=== PATIENT | female | born 1985 | race Caucasian/White ===

== ENCOUNTER 2022-03-21 08:04 | Outpatient (CLI) | payer OTHER, SELFPAY ==
--- NOTE | 2022-03-21 08:15 | CRLHL7_ITS ---
For Patients: As a result of the Century Cures Act, medical imaging exams and procedure reports are released immediately into your electronic medical record. You may view this report before your referring provider. If you have questions, please contact your health care provider. INDICATION: First trimester scan, establish dates. COMPARISON: None. TECHNIQUE: Real-time antoine-scale imaging of the pelvis was performed. FINDINGS: Sonographic imaging demonstrates a single living intrauterine gestation. The embryo demonstrates a regular cardiac rate measuring 166 beats per minute. The embryo`s crown-rump length measurement of 2.5 cm corresponds to a gestational age of 9 weeks 1 day with a sonographic due date of 10/23/2022. There is a normal-appearing yolk sac. There are no gross abnormalities noted within the embryo at this early state of development. The gestational sac has a normal appearance. There is no evidence of a perigestational hemorrhage. The amount of fluid within the sac appears appropriate for gestational age. The cervix is closed. There are 2 lower uterine segment fibroids measuring 2.0 x 1.0 x 1.5 cm and 1.2 x 1.1 x 1.0 cm. The ovaries are of normal size. Simple right ovarian cyst measuring 2.3 cm and corpus luteal right ovarian cyst measuring 2.2 cm. There are no suspicious fluid collections noted in the cul-de-sac. IMPRESSION: Single living intrauterine with sonographic gestational age 9 weeks 1 day and sonographic due date 10/23/2022. Two uterine fibroids at the lower uterine segment measuring up to 2 cm. Dictated by Steve Gipson MD @ 03/21/2022 12:58:30 PM (Electronically Signed)
== END 2022-03-21 08:05 | disposition home or self-care (01) ==
PROVIDERS: Visit Provider Registered Nurse
DX: Z34.91 Encounter for supervision of normal pregnancy, unspecified, first trimester (principal); Z3A.09 9 weeks gestation of pregnancy
CPT/HCPCS: 76817

== ENCOUNTER 2022-03-21 09:17 | Outpatient (CLI) | payer OTHER, SELFPAY ==
[2022-03-21 12:31] LABS: HIV 1/2/P24 Combo Screen* Negative (Negative)
[2022-03-21 13:14] LABS: Chlamydia DNA Amplified* NOT DETECTED (No Detected); GC DNA Amplified* NOT DETECTED (No Detected)
[2022-03-21 15:33] LABS: Hepatitis B Surface Antigen* Negative (Negative)
[2022-03-21 15:50] LABS: Hepatitis C Virus Antibody* Negative (Negative)
[2022-03-24 09:52] LABS: Rapid Plasma Reagin (RPR) Non Reactive (Non Reactive)
[2022-03-24 14:06] LABS: Varicella-Zoster Virus Ab, IgG 279.9 IV
[2022-03-24 14:14] LABS: Rubella Antibody IgG 35.1 IU/mL
== END 2022-03-21 09:18 | disposition home or self-care (01) ==
PROVIDERS: Visit Provider Registered Nurse
DX: O09.521 Supervision of elderly multigravida, first trimester (principal); Z3A.09 9 weeks gestation of pregnancy
CPT/HCPCS: 81420; 86592; 86703; 86762; 86787; 86803; 86850; 86900; 86901; 87086; 87340; 87491; 87591

== ENCOUNTER 2022-05-08 15:23 | Outpatient (CLI) | payer OTHER, SELFPAY | END 2022-05-08 15:24 | disposition home or self-care (01) | LOC: NFLDREF 15:29 | PROVIDERS: Visit Provider Obstetrics & Gynecology | DX: O09.522 Supervision of elderly multigravida, second trimester (principal); Z3A.15 15 weeks gestation of pregnancy | CPT/HCPCS: 81511 ==

== ENCOUNTER 2022-08-15 07:59 | Outpatient (CLI) | payer OTHER, SELFPAY | END 2022-08-15 08:00 | disposition home or self-care (01) | LOC: NFLDREF 08-17 14:10 | PROVIDERS: Visit Provider Obstetrics & Gynecology | DX: Z34.93 Encounter for supervision of normal pregnancy, unspecified, third trimester (principal); Z3A.30 30 weeks gestation of pregnancy | CPT/HCPCS: 86592 ==

== ENCOUNTER 2022-08-15 08:01 | Outpatient (CLI) | payer OTHER, SELFPAY ==
--- NOTE | 2022-08-15 08:15 | CRLHL7_ITS ---
For Patients: As a result of the Century Cures Act, medical imaging exams and procedure reports are released immediately into your electronic medical record. You may view this report before your referring provider. If you have questions, please contact your health care provider. INDICATION: Third trimester scan, evaluate growth. COMPARISON: 03/21/2022 TECHNIQUE: Real time antoine scale imaging of the fetus was performed as well as color Doppler and spectral Doppler analysis of the umbilical artery. FINDINGS: Sonographic imaging demonstrates a single living intrauterine gestation. Fetus demonstrates a regular cardiac rate of 150 beats per minute. Fetus has a vertex position. The placenta lies anteriorly. Anterior uterine fibroid measuring 3.5 x 1.3 x 2.8 cm. Amniotic fluid volume appears normal and there is a single deepest vertical pocket: 5.3 cm. The estimated weight is 1708gm which lies at the 77th %. The HC/AC ratio measures 1.02 range (0.96-1.17). BPD 71st percentile. HC 36th percentile. AC 87th percentile. FL 51st percentile. IMPRESSION: Anterior retroplacental fibroid noted measuring 3.5 x 1.3 x 2.8 cm. Sonographic gestational age 31 weeks 0 days and sonographic due date 10/17/2022. Sonographic age 7 days ahead of the clinical age. Estimated weight 77th percentile. Abdominal circumference 87th percentile. Dictated by Steve Gipson MD @ 08/15/2022 9:10:27 AM (Electronically Signed)
== END 2022-08-15 08:02 | disposition home or self-care (01) ==
LOC: US 08:01
PROVIDERS: Visit Provider Obstetrics & Gynecology
DX: Z34.93 Encounter for supervision of normal pregnancy, unspecified, third trimester (principal); Z3A.31 31 weeks gestation of pregnancy
CPT/HCPCS: 76816

== ENCOUNTER 2022-08-21 11:14 | Outpatient (RCR) | payer OTHER, SELFPAY ==
--- NOTE | 2022-08-21 15:49 | PT.OPEX ---
[facility] Outpatient Eval PT [facility] Outpatient Eval Start: 08/21/22 11:28 Freq: Status: Active Protocol: Document 08/21/22 11:30 [facility] (Rec: 08/21/22 15:07 [facility] [id number]) E-signed By Kendell Quispe, PT Physical Therapy Outpatient Evaluation Insurance Information Insurance Name [employer] Medical Diagnosis Back pain affecting Dorsalgia M54.9 Treating Diagnosis LBP w/ radiculopathy M54.16 related LBP Referring MD Dr. Zhane Zambrano Subjective Subjective Pt has a history of LBP. She has a bone tumor that abuts L5 , out of pelvis ( osteochondroma). She worked really intensely with PT 2011- 2014. Pt is 31 weeks - due . Prior to , staying active (running, skiiing) Current symptoms: left butt numbness, mild SIJ pain, radiculopathy from knee and below to left foot Aggravating: prolonged sitting , sleep Relieving: walking, pre-mendez yoga. 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 Limited only by baby Extension: WNL but end range pain in low back Flexion preference Hips: WNL bilaterally Strength: LEs: grossly WNL except glute max 4/5 Palpation: mild tenderness L PSIS Posture: level pelvis in standing Slump: + for neural tension left sciatic nerve Assessment Assessment/Impression 37 year old female at 31 weeks gestation, first , presents with subacute on chronic left low back/buttock pain with radiculopathy. 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 She is active and has received extensive PT for this condition, however, related changes have worsened her symptoms. Patient presented today mostly interested in learning appropriate exercises to manage symptoms and for LE stretching and strengthening and core strength that are safe to perform in the third trimester. Patient is a quick learner and has a good foundation to build upon for HEP. Primary Functional Limitations prolonged sitting, sleep Plan of Care Rehabilitation Potential Not Applicable Rehabilitation Potential Comments Will likely be managing increasing pain as she progresses throughout her , but will have excellent rehab potential post delivery. Physical Therapy Goals 1) In 1-2 weeks, patient will be I with HEP and self- management of related LBP/radiculopathy sx 2) For remainder of , patient will be able to manage related back pain/radiculopathy sx , pain not to exceed 3/10 and/or be disruptive to work/daily life 3) In 1-2 weeks, patient reports that LBP/radiculopathy not limiting sleep quality Coordination/Communication With Referral Source Treatment Plan/Direct Interventions Manual Therapy,Self-Care/Home Management,Therapeutic Exercises Frequency/Duration 3-4 visits over the course of (8-9 more weeks) Patient Will Be Discharged From Therapy Independent w/HEP, Independently Progressing Evaluation Billing Untimed Code Treatment Minutes 25 Complexity Moderate Certification Information Physician Comment/Change : Physician NPI Number #
== END 2022-12-19 23:59 | disposition home or self-care (01) ==
PROVIDERS: Visit Provider Obstetrics & Gynecology
DX: O99.891 Other specified diseases and conditions complicating pregnancy (principal); M54.9 Dorsalgia, unspecified; Z51.89 Encounter for other specified aftercare
CPT/HCPCS: 97110; 97162

== ENCOUNTER 2022-09-10 07:20 | Outpatient (CLI) | payer OTHER, SELFPAY ==
--- NOTE | 2022-09-10 07:15 | CRLHL7_ITS ---
For Patients: As a result of the Century Cures Act, medical imaging exams and procedure reports are released immediately into your electronic medical record. You may view this report before your referring provider. If you have questions, please contact your health care provider. INDICATION: retroplacental leiomyoma, follow up growth COMPARISON: 08/15/2022 TECHNIQUE: Real time antoine scale imaging of the fetus was performed. FINDINGS: Sonographic imaging demonstrates a single living intrauterine gestation. Fetus demonstrates a regular cardiac rate of 139 beats per minute. Fetus has a vertex position. The placenta lies anteriorly. Amniotic fluid volume appears normal and there is a single deepest vertical pocket: 5.3 cm. The estimated weight is 2221gm which lies at the 37th %. On the prior OB ultrasound exam dated 08/15/2022 the estimated weight was at the 77th%. BPD 57th percentile. HC 28th percentile. AC 48th percentile. FL 25th percentile. The HC/AC ratio measures 1.04 range (0.95-1.11). Anterior uterine fibroid measures 3.4 x 1.3 x 2.6 cm. IMPRESSION: Sonographic gestational age 33 weeks 6 days and sonographic due date 10/23/2022. Good correlation with dates. Normal interval growth. Estimated weight 37th percentile. Abdominal circumference 48 percent. Anterior uterine fibroid measuring 3.4 x 1.3 x 2.6 cm. Previously, this measured 3.5 x 1.3 x 2.8 cm. Dictated by Steve Gipson MD @ 09/10/2022 9:51:34 AM (Electronically Signed)
== END 2022-09-10 07:21 | disposition home or self-care (01) ==
LOC: US 07:21
PROVIDERS: PCP Family Medicine; Visit Provider Obstetrics & Gynecology
DX: O34.13 Maternal care for benign tumor of corpus uteri, third trimester (principal); D25.9 Leiomyoma of uterus, unspecified; Z3A.33 33 weeks gestation of pregnancy
CPT/HCPCS: 76816

== ENCOUNTER 2022-09-19 09:47 | Outpatient (CLI) | payer OTHER, SELFPAY ==
[2022-09-19 10:10] VITALS: BP 104/64; PULSE 69; RESP 16; TEMP 36.9
[2022-09-19 10:28] VITALS: BP 108/63; PULSE 73
--- NOTE | 2022-09-19 11:03 | PC.OBNST ---
NST Note NST Note Start: 09/19/22 09:59 Freq: ONCE Status: Active Protocol: Document 09/19/22 10:40 ZARIA (Rec: 09/19/22 11:03 ZARIA [id number]) NST Note 5 Para (# of births) 0 EDC 10/24/22 Gestational Age In Weeks & Days 35 Weeks & 0 Days Patient Presented with Complaint(s) of Pain,Nausea and vomiting If Pain, describe location history of back pain with flare up, states likely just tweaked it Reactive Yes Appropriate for Gestational Age Yes JAMES Herrera RN Date 09/19/22 Reactive Yes Appropriate for Gestational Age Yes JAMES Reilly RNC Date 09/19/22 OB NST charge Yes Complete NST Note via Write Note Yes The provider's electronic signature indicates the NST is reactive/appropriate for gestational age. *Note to provider: If an addendum is required, open the patient's chart and click on the note under the Nurse/Allied Health tab.
== END 2022-09-19 10:40 | disposition home or self-care (01) ==
LOC: OB OUT 09:47 → OB 09:48
PROVIDERS: PCP Family Medicine; Visit Provider Obstetrics & Gynecology
DX: O47.03 False labor before 37 completed weeks of gestation, third trimester (principal); Z3A.35 35 weeks gestation of pregnancy
CPT/HCPCS: 59025; 99213

== ENCOUNTER 2022-09-21 14:34 | Outpatient (CLI) | payer OTHER, SELFPAY ==
[2022-09-21 14:45] VITALS: PULSE 94; O2SAT 98
[2022-09-21 14:50] VITALS: PULSE 100; O2SAT 96
[2022-09-21 14:55] VITALS: PULSE 93; O2SAT 96
[2022-09-21 15:24] VITALS: PULSE 107; PULSE 163; O2SAT 81; O2SAT 97
[2022-09-21 15:27] VITALS: BP 114/69; PULSE 105
--- NOTE | 2022-09-21 17:30 | W.PM.OBTRAN ---
History of Present Illness History of Present Illness History of Present Illness: 37 year old -0-4-0 woman at 35 weeks, 2 days gestation by 1st trimester US, CRISTAL 10/24/22, presents with regular contractions. She has received care thus far at our institution. However, she has Chiari I malformation, and Anesthesia Department here prefers to avoid regional anesthesia in her case because of this. Thus, the plan has been for her to give at [facility]. At this time, she has been [place] regularly for couple hours, currently every 3 minutes. OB HISTORY: 03/2019: Conceived spontaneously. [place] miscar[place] at 6 weeks gestation. [facility]. 09/2019: Conceived spontaneously. Partial Molar/triploid/abnormal trophoblast. D+C at ~14 weeks at [facility]. Ongoing bleeding x6 weeks, then passed placenta in shower-confirmed with pathology. Took 4 months for hcg to drop. --Experienced difficulty conceiving. Referred to [facility].-- 2020: Conceived spontaneously. Early miscarriage at 5 weeks gestation. [facility]. 2021: 4th or 5th round of IUI - conceived. Early miscarriage at 5weeks gestation. D+C and hysteroscopy (in preparation for IVF) at [facility]. --Began planing for IVF-- GYNECOLOGIC HISTORY: Contraception being uses during time of conception: none Last normal menstrual period: 01-15-22. Date reliability: certain. Cycle interval: 26 days Treatment for infertility: history of IUI, was planning IVF, but conceived spontaneously Last pap: normal, negative HPV History of STI or PID: denies History of MRSA: denies Other comments: OB Problem List : Jorge 1. Infertility. H/o 5 rounds IUI. Was planning embryo transfer, but conceived spontaneously !! 2. AMA MaterniT 21: negative Baby ASA at 12 wks Level 2 u/s: Normal anatomy. Level 2 ultrasound results reviewed. Recommendations: Return to primary provider for continued care. Growth ultrasounds at 28 and 34 weeks gestation recommended due to retroplacental fibroid. 30 weeks: cephalic, SDP 5.3 cm, EFW 77, AC 87%. 3. H/o partial molar plus 3 early miscarriages. Tested negative for antiphospholipid antibodies. Normal maternal karyotype. 4. Chiari Malformation, Type 1. Asymptomatic, other than possibly headaches. Already seen by Perinatology; records reviewed. Okay to continue routine care locally with plan for transfer of care to [facility] at 36 weeks. Plan for delivery at [facility] at ~39 weeks. Already seen by neurology; records scanned. Refer to Anesthesia to discuss pain management options: on 04/11/22, recommend against regional anesthesia. Anesthesia recommends delivery at tertiary [facility]. Patient chooses [facility]. AFP test: Negative (05/08/22) 5. Migraines. Caffeine currently offers relief. Used sumatriptan in past, but thought she couldn't take in . Can use sumatriptan if needed. Could use propranolol for migraine prophylaxis if needed as well. 6. Mild intermittent asthma. Uses albuterol on rare occasions. 7. 2 uterine fibroids at lower uterine segment measuring up to 2cm. 8. Osteochondroma in pelvis diagnosed at 20 y.o. Abuts L5 in right pelvis. no neuroilogic issues. Stable in size. 9. Gilbert Syndrome Flu: completed Covid: completed and boosted multiple times!! TDAP- 08/15/22 Meds Home Medications and Allergies Home Medications Medication Instructions Recorded Confirmed Type docosahexaenoic acid 200 mg mg PO 03/21/22 09/10/22 History capsule ( DHA) aspirin 81 mg capsule 81 mg PO QDAY 05/08/22 09/21/22 History Allergies Allergy/AdvReac Type Severity Reaction Status Date / Time No Known Allergies Allergy Unknown Verified 09/10/22 13:48 COUNT INCLUDES THE [facility] Medical History (Updated 09/21/22 @ 17:46 by Zhane Zambrano MD) Partial molar ?O08.89 - Other complications following an ectopic and molar (ICD-10) Miscarriage ?O03.9 - Complete or unspecified spontaneous without complication (ICD-10) Migraine with aura ?G43.109 - Migraine with aura, not intractable, without status migrainosus (ICD-10) Foreign body in hand ?S60.559A - Superficial foreign body of unspecified hand, initial encounter (ICD-10) Concussion ?S06.0XAA - Concussion with loss of consciousness status unknown, initial encounter (ICD-10) Bone tumor ?D49.2 - Neoplasm of unspecified behavior of bone, soft tissue, and skin (ICD-10) Anesthesia complication ?T88.59XA - Other complications of anesthesia, initial encounter (ICD-10) Surgical History (Updated 05/08/22 @ 16:17 by Ondina Ferrera MD) H/O dilation and curettage ?Z98.890 - Other specified postprocedural states (ICD-10) [place] teeth extracted ?K08.409 - Partial loss of teeth, unspecified cause, unspecified class (ICD-10) Family History Mother Lupus Anxiety Father Gilbert syndrome Sister Anxiety Maternal Grandmother Colon cancer Paternal Grandmother Pancreatic cancer Social History Smoking Status: Never smoker Little interest or pleasure in doing things: not at all Feeling down, depressed, or hopeless: not at all History History 5 Elective abortions Para 0 Spontaneous abortions 4 Hx # Term Pregnancies Ectopic pregnancies Hx # Pregnancies Multiple births Number of Living Children 0 OB - H&P: Exam Physical Exam Vital signs: Pulse BP Pulse Ox 105 H 114/69 97 09/21/22 15:27 09/21/22 15:27 09/21/22 15:24 Narrative: Physical exam: General: No acute distress , lying on her side in bed, appears uncomfortable Psych: Alert and oriented x3, full affect HEENT: Normocephalic, atraumatic Heart: Regular rate and rhythm, no murmur rub or gallop Lungs: Clear to auscultation bilaterally Abdomen: soft, nontender, cephalic lie Lower extremities: No edema or erythema Pelvic exam: per RN initial exam: 1.5 cm, 50%, 0 station Subsequent exam 1 hour and 45 minutes later: 2 cm, 60%, 0 station tracing call baseline 130, accelerations present, no decelerations, moderate variability. Contractions every 3 minutes Results Labs Laboratory Tests 09/21/22 Range/Units 17:20 Group B Strep DNA Pending Assessment and Plan Assessment and plan (1) labor: Status: Acute Assessment and Plan: Early labor at 35 weeks, 2 days gestation. Reassuring status with category 1 tracing GBS unknown Mode of transport: [facility] Transfer to: [facility] (2) Chiari malformation type I: Problem comment: Follows with neuro, follow-up MRI stable, cleared for vaginal delivery Status: Acute Assessment and Plan: Not a candidate for neuraxial anesthesia at this institution. This, in combination with labor, is the indication for transfer to higher level of care. Mode of transport: [facility] Plan GBS collected and pending. She will be given a dose of betamethasone for promotion of lung maturity. Ampicillin to be started for GBS prophylaxis until GBS culture results available. To facilitate transfer, she will be given a single dose of nifedipine 20 mg p.o.. I discussed her case with Dr. Shaista Post at [facility], who accept her in transfer.
[2022-09-21] MEDS: AMPICILLIN 2 GM in 0.9 % SODIUM CHLORIDE Mini-bag 100 ML IVPB (17:42)
[2022-09-21] MEDS: LACTATED RINGERS 1000 ML 1,000 ML 125 ML IV (17:42)
[2022-09-21 17:44] VITALS: BP 116/69; PULSE 92
[2022-09-21] MEDS: BETAMETHASONE SOD PHOS/ACETATE 6 MG/ML ML 12 MG IM (17:53)
[2022-09-21] MEDS: NIFEdipine 10 MG CAPSULE 20 MG PO (17:54)
[2022-09-22 14:23] LABS: Strep B DNA Probe POSITIVE (Negative)
[2022-09-22 14:28] LABS: Strep B Pen/Amox Allergy No
--- NOTE | 2022-10-27 17:00 | PC.OBNST ---
NST Note NST Note Start: 09/21/22 14:49 Freq: ONCE Status: Complete Protocol: Document 09/21/22 19:00 MARILYN (Rec: 09/22/22 07:17 ROLDAN [id number]) NST Note 5 Para (# of births) 0 EDC 10/24/22 Gestational Age In Weeks & Days 35 Weeks & 3 Days Patient Presented with Complaint(s) of Contractions/cramping Reactive Yes Appropriate for Gestational Age Yes RN Maryam Drew RN Date 09/21/22 Reactive Yes Appropriate for Gestational Age Yes JAMES Kyle RN Date 09/21/22 OB NST charge Yes Complete NST Note via Write Note Yes The provider's electronic signature indicates the NST is reactive/appropriate for gestational age. *Note to provider: If an addendum is required, open the patient's chart and click on the note under the Nurse/Allied Health tab.
== END 2022-09-21 18:20 | disposition home or self-care (01) ==
LOC: OB OUT 14:36 → OB 14:37
PROVIDERS: PCP Family Medicine; Visit Provider Obstetrics & Gynecology
DX: O09.523 Supervision of elderly multigravida, third trimester (principal); O60.03 Preterm labor without delivery, third trimester; Z3A.35 35 weeks gestation of pregnancy
CPT/HCPCS: 59025; 87081; 87086; 87653; 99213; A9270; J0290; J0702; J7120

== ENCOUNTER 2022-09-21 18:10 | Outpatient (CLI) | payer OTHER, SELFPAY | END 2022-09-21 18:11 | disposition home or self-care (01) | LOC: AMB 09-24 14:50 | PROVIDERS: PCP Family Medicine; Visit Provider Family Medicine | DX: O60.00 Preterm labor without delivery, unspecified trimester (principal) | CPT/HCPCS: A0425; A0434 ==

== ENCOUNTER 2023-07-23 08:09 | Emergency (ER) | payer OTHER, SELFPAY ==
[2023-07-23 08:13] VITALS: BP 102/68; PULSE 93; RESP 18; TEMP 36.7; O2SAT 100; BMI 1527.0
--- NOTE | 2023-07-23 08:29 | CRLHL7_ITS ---
For Patients: As a result of the Cures Act, medical imaging exams and procedure reports are released immediately into your electronic medical record. You may view this report before your referring provider. If you have questions, please contact your health care provider. RIGHT BREAST ULTRASOUND CLINICAL HISTORY: RIGHT breast mastitis. COMPARISON: None. TECHNIQUE: Real-time ultrasound imaging of RIGHT breast with imaging documentation. FINDINGS: Targeted sonogram RIGHT breast 11 o`clock performed in the area of concern. Heterogeneous breast tissue is present with increased vascularity. No fluid collection or mass. IMPRESSION: Mastitis. No abscess. RECOMMENDATIONS: Clinical follow-up. BI-RADS: 2. Benign. Dictated by Steve Gipson MD @ 07/23/2023 10:06:36 AM/CRL:shantell VASQUEZ/Dictated by: Steve Gipson MD @ 07/23/2023 10:06:00 AM (Electronically Signed)
[2023-07-23 08:55] LABS: Lactate* 1.7 mmol/L (0.5-1.9)
[2023-07-23 09:04] LABS: Basophils Percent Auto 0.1 % (0.0-3.0); Eosinophils Percent Auto 0.6 % (0.0-7.0); Hematocrit 36.3 % (33.0-51.0); Hemoglobin* 12.2 gm/dL (12.0-16.0); Immature Granulocytes Pct Auto 0.3 %; Lymphocytes Percent Auto 5.5 % (20-44); Mean Corpuscular HGB Conc 34 gm/dL (32-36); Mean Corpuscular Hemoglobin 30 pg (26-34); Mean Corpuscular Volume 89 fL (80-100); Monocytes Percent Auto 3.1 % (0.0-11.0); Neutrophils Percent Auto 90.4 % (42.0-72.0); Platelet Count* 185 K/uL (140-440); Red Blood Count 4.07 m/uL (4.00-5.20); White Blood Count* 15.76 K/uL (4.50-11.00)
[2023-07-23 09:07] LABS: Slide Review Reflex No
[2023-07-23 09:38] LABS: C Reactive Protein* 16.9 mg/dL (0.5-1.0)
--- NOTE | 2023-07-23 10:07 | ED.GENADULT ---
HPI - General Adult General Date Seen: 07/23/23 Chief complaint: Breast Symptoms Stated complaint: Breast issue - mastitis Time Seen by Provider: 07/23/23 08:10 Source: patient, RN notes reviewed and old records reviewed Mode of arrival: ambulatory Limitations: no limitations History of Present Illness HPI narrative: Patient is a 38-year-old woman, generally healthy, who is 9 months , has been breast feeding and had started to wean as she has an upcoming work event that she will be gone for 2 weeks. Yesterday she developed some pain in the right breast, she says she was at [facility] with her infant who was being seen, mentioned it to the PA there, later in the day developed a fever called the PA back and dicloxacillin was prescribed. She has taken a couple doses of that. She says that the PA told her if it was not better by today that she should come in and get an ultrasound so she went to the [facility] but they said that she needed to come here for further evaluation. She notes that she did have a temperature a 100.8? this morning, she took ibuprofen feels improved. She continues to have redness and pain in the right breast, it is no worse but has not gotten significantly better. She is able to express a tiny bit of purulence from that duct, but it otherwise does not seem like it is draining well. Related Data Home Medications ?Medication ?Instructions ?Recorded ?Confirmed docosahexaenoic acid 200 mg mg PO 03/21/22 04/12/23 capsule ( DHA) dicloxacillin 500 mg capsule 500 mg PO QID 07/23/23 07/23/23 Allergies Allergy/AdvReac Type Severity Reaction Status Date / Time No Known Allergies Allergy Unknown Verified 04/12/23 09:36 Review of Systems Status of ROS: Reports: 6 or more systems reviewed and unremarkable except as noted in History and below [facility] Medical History Partial molar ?O08.89 - Other complications following an ectopic and molar (ICD-10) Miscarriage ?O03.9 - Complete or unspecified spontaneous without complication (ICD-10) Migraine with aura ?G43.109 - Migraine with aura, not intractable, without status migrainosus (ICD-10) Foreign body in hand ?S60.559A - Superficial foreign body of unspecified hand, initial encounter (ICD-10) Concussion ?S06.0XAA - Concussion with loss of consciousness status unknown, initial encounter (ICD-10) Bone tumor ?D49.2 - Neoplasm of unspecified behavior of bone, soft tissue, and skin (ICD-10) Anesthesia complication ?T88.59XA - Other complications of anesthesia, initial encounter (ICD-10) Surgical History H/O dilation and curettage ?Z98.890 - Other specified postprocedural states (ICD-10) [place] teeth extracted ?K08.409 - Partial loss of teeth, unspecified cause, unspecified class (ICD-10) Family History Mother Lupus Anxiety Father Gilbert syndrome Sister Anxiety Maternal Grandmother Colon cancer Paternal Grandmother Pancreatic cancer Social History Smoking Status: Never smoker How often do you have a drink containing alcohol: never AUDIT-C Alcohol total score: 0 Non-prescribed substance use: denies use Little interest or pleasure in doing things: not at all Feeling down, depressed, or hopeless: several days Exam Narrative: Exam Narrative: Vital signs reviewed In general, an alert, well-appearing woman. This is heart: Regular rate and rhythm, no murmur. Lungs: Clear, no increased work of breathing. Breasts: She has erythema, warmth, induration in the upper quarter of the right breast. No other surrounding erythema or rash. Const: Vital Signs, click to edit/add: Vital Signs - 24 hr 07/23/23 08:13 Temperature 98.1 F Pulse Rate [Pulse Oximeter] 93 Respiratory Rate 18 Blood Pressure [Ri ght Upper Arm] 102/68 Pulse Oximetry 100 Oxygen Delivery Me thod Room Air Documenting provider has reviewed patient's vital signs: yes Course Course ED Course: I checked a CBC, white count is elevated at 16, CRP elevated at 17. Lactate normal. I did send a blood culture. She had an ultrasound which does not show an abscess by preliminary report. Final report agrees. I have reviewed all this with her. She has been on antibiotics for less than 24 hours, I think it is reasonable to give her another day or 2 and see if she responds. I did send a milk culture. She is nontoxic in appearance. Re[facility] 1-2 days if not improving, return any time for acute worsening. Vital Signs Vital signs: Initial Vital Signs Temperature 98.1 F 07/23/23 08:13 Temperature Source Temporal Artery Scan 07/23/23 08:13 Pulse Rate 93 07/23/23 08:13 Respiratory Rate 18 07/23/23 08:13 Blood Pressure 102/68 07/23/23 08:13 Blood Pressure Mean 79 07/23/23 08:13 Blood Pressure Position Supine 07/23/23 08:13 Pulse Oximetry 100 07/23/23 08:13 Oxygen Delivery Method Room Air 07/23/23 08:13 Vital Signs Temperature 98.1 F 07/23/23 08:13 Pulse Rate 93 07/23/23 08:13 Respiratory Rate 18 07/23/23 08:13 Blood Pressure 102/68 07/23/23 08:13 Pulse Oximetry 100 07/23/23 08:13 Oxygen Delivery Method Room Air 07/23/23 08:13 Temperature 98.1 F 07/23/23 08:13 Pulse Rate 93 07/23/23 08:13 Respiratory Rate 18 07/23/23 08:13 Blood Pressure 102/68 07/23/23 08:13 Pulse Oximetry 100 07/23/23 08:13 Oxygen Delivery Method Room Air 07/23/23 08:13 Medical Decision Making Lab Data Labs: Lab Results 07/23/23 Range/Units 08:45 WBC 15.76 H (4.50-11.00) K/uL RBC 4.07 (4.00-5.20) m/uL Hgb 12.2 (12.0-16.0) gm/dL Hct 36.3 (33.0-51.0) % MCV 89 (80-100) fL MCH 30 (26-34) pg MCHC 34 (32-36) gm/dL RDW Coeff of Marcie 12.0 (11.5-15.5) % Plt Count 185 (140-440) K/uL Neut % (Auto) 90.4 H (42.0-72.0) % Lymph % (Auto) 5.5 L (20-44) % Shelby % (Auto) 3.1 (0.0-11.0) % Eos % (Auto) 0.6 (0.0-7.0) % Baso % (Auto) 0.1 (0.0-3.0) % Neut # (Auto) 14.20 H (1.7-7.0) K/uL Lymph # (Auto) 0.90 (0.90-2.90) K/uL Shelby # (Auto) 0.50 (0.00-0.90) K/UL Eos # (Auto) 0.10 (0.00-0.50) K/uL Baso # (Auto) 0.00 (0.00-0.30) K/uL Abs Immat Gran (auto) 0.00 (0.00-0.30) K/uL Imm/Tot Granulo (auto) 0.3 % Lactate 1.7 (0.5-1.9) mmol/L C-Reactive Protein 16.9 H (0.5-1.0) mg/dL Discharge Plan Discharge Clinical Impression: Acute mastitis of right breast Patient Disposition: Home, Self-Care Condition: Stable Instructions: Mastitis (ED) Additional Instructions: Continue your antibiotic as prescribed. We did a culture today, and if this returns showing something that is not sensitive to dicloxacillin, we will call you to get that changed. If you have no improvement over the next 24-48 hours, [facility] with [facility], . For worsening symptoms at any time, return to the emergency department. Prescriptions: No Action DHA 200 mg capsule PO dicloxacillin 500 mg capsule 500 mg PO QID Follow Up/Referrals: Shoshana Boo MD [Primary Care Provider] - Stand Alone Forms: [employer] Info Instructions
== END 2023-07-23 09:40 | disposition home or self-care (01) ==
PROVIDERS: Emergency Provider Emergency Medicine; PCP Family Medicine
DX: N61.0 Mastitis without abscess (principal)
CPT/HCPCS: 36415; 76642; 83605; 85025; 86140; 87040; 87070; 87077; 87184; 99283; 99284

== ENCOUNTER 2024-03-26 14:06 | Outpatient (CLI) | payer BC, SELFPAY | END 2024-03-26 14:07 | disposition home or self-care (01) | PROVIDERS: PCP Family Medicine; Visit Provider Physician Assistant | DX: Z34.91 Encounter for supervision of normal pregnancy, unspecified, first trimester (principal); O34.81 Maternal care for other abnormalities of pelvic organs, first trimester; O34.11 Maternal care for benign tumor of corpus uteri, first trimester; D25.9 Leiomyoma of uterus, unspecified; N83.202 Unspecified ovarian cyst, left side; Z3A.01 Less than 8 weeks gestation of pregnancy | CPT/HCPCS: 76817 ==

== ENCOUNTER 2024-04-09 12:52 | Outpatient (CLI) | payer BC, SELFPAY | END 2024-04-09 12:53 | disposition home or self-care (01) | PROVIDERS: PCP Family Medicine; Visit Provider Physician Assistant | DX: Z34.91 Encounter for supervision of normal pregnancy, unspecified, first trimester (principal); Z3A.01 Less than 8 weeks gestation of pregnancy | CPT/HCPCS: 76817; 83021; 84443; 86592; 86703; 86704; 86706; 86762; 86787; 86803; 86850; 86900; 86901; 87086; 87340 ==

== ENCOUNTER 2024-04-09 13:33 | Outpatient (CLI) | payer BC, SELFPAY | END 2024-04-09 13:34 | disposition home or self-care (01) | PROVIDERS: PCP Family Medicine; Visit Provider Advanced Practice Midwife | DX: Z34.91 Encounter for supervision of normal pregnancy, unspecified, first trimester (principal); Z3A.01 Less than 8 weeks gestation of pregnancy | CPT/HCPCS: 83020; 83021; 84443; 85660; 86592; 86703; 86704; 86706; 86762; 86787; 86803; 86850; 86900; 86901; 87086; 87340 ==

== ENCOUNTER 2024-06-04 09:56 | Outpatient (CLI) | payer BC, SELFPAY | END 2024-06-04 09:57 | disposition home or self-care (01) | LOC: NFLDREF 06-07 08:41 | PROVIDERS: PCP Family Medicine; Referring Provider Family Medicine; Visit Provider Obstetrics & Gynecology | DX: O09.522 Supervision of elderly multigravida, second trimester (principal); G93.5 Compression of brain; Z3A.15 15 weeks gestation of pregnancy | CPT/HCPCS: 81511 ==

== ENCOUNTER 2024-08-05 14:43 | Outpatient (CLI) | payer BC, SELFPAY | END 2024-08-05 14:44 | disposition home or self-care (01) | LOC: NFLDREF 14:44 | PROVIDERS: PCP Family Medicine; Visit Provider Obstetrics & Gynecology | DX: O26.812 Pregnancy related exhaustion and fatigue, second trimester (principal); Z3A.24 24 weeks gestation of pregnancy | CPT/HCPCS: 84443 ==

== ENCOUNTER 2024-09-01 10:30 | Outpatient (CLI) | payer BC, SELFPAY | END 2024-09-01 10:31 | disposition home or self-care (01) | LOC: NFLDREF 09-03 02:19 | PROVIDERS: PCP Family Medicine; Referring Provider Family Medicine; Visit Provider Obstetrics & Gynecology | DX: Z34.83 Encounter for supervision of other normal pregnancy, third trimester (principal) | CPT/HCPCS: 86592 ==

== ENCOUNTER 2024-09-14 13:55 | Outpatient (CLI) | payer BC, SELFPAY ==
--- NOTE | 2024-09-14 14:00 | CRLHL7_ITS ---
For Patients: As a result of the Century Cures Act, medical imaging exams and procedure reports are released immediately into your electronic medical record. You may view this report before your referring provider. If you have questions, please contact your health care provider. OB ULTRASOUND FOLLOW-UP/LIMITED, 09/14/2024 CLINICAL HISTORY: Suspected macrosomia. COMPARISON: 06/24/2024. TECHNIQUE: Real time antoine scale imaging of the fetus was performed. Transabdominal imaging performed. FINDINGS: CRISTAL by LMP/US: 11/22/2024. GA: 30 weeks 1 day. Gestation: Single. Cervix: Not visualized. Positioning: Vertex. Amniotic Fluid: 5.0 cm SDP. Placenta: Technique: TA. Placenta Position: Anterior. Dopplers: Heart Rate: 129 bpm. BIOMETRY: BPD: 7.9 cm, 31 weeks 1 day. 69% HC: 29.0 cm, 32 weeks 0 days. 67% AC: 26.9 cm, 31 weeks 0 days. 70% FL: 5.6 cm, 29 weeks 2 days. 16% FL/AC Ratio: 20.73% HC/AC Ratio: 1.08. EFW: 1596 grams, 3 lb 8 oz. Age by this US: 30 weeks 6 days. CRISTAL by this US: 11/17/2024. Percentile by CRISTAL: 52% IMPRESSION: 1. Sonographic gestational age 30 weeks 6 days and sonographic due date 11/17/2024. Sonographic age is 5 days ahead of the clinical age. 2. Estimated weight 52nd percentile. Abdominal circumference 70th percentile. 3. BPD 69th percentile. HC 67th percentile. 4. Anterior uterine fibroid measures 2.5 x 1.1 x 1.8 cm. Steve Gipson M.D. Diagnostic Radiologist [email or web address] Transcribed: 8:41 am DW/Dictated by: Steve Gipson MD @ 09/15/2024 7:10:00 AM (Electronically Signed)
== END 2024-09-14 13:56 | disposition home or self-care (01) ==
LOC: US 13:55
PROVIDERS: PCP Family Medicine; Visit Provider Obstetrics & Gynecology
DX: Z34.93 Encounter for supervision of normal pregnancy, unspecified, third trimester (principal); Z3A.30 30 weeks gestation of pregnancy
CPT/HCPCS: 76816

== ENCOUNTER 2024-10-15 13:56 | Outpatient (CLI) | payer BC, SELFPAY ==
--- NOTE | 2024-10-15 14:00 | CRLHL7_ITS ---
For Patients: As a result of the Century Cures Act, medical imaging exams and procedure reports are released immediately into your electronic medical record. You may view this report before your referring provider. If you have questions, please contact your health care provider. OB ULTRASOUND FOLLOW-UP, 10/15/2024 CLINICAL HISTORY: Measuring small for dates. TECHNIQUE: Real time antoine scale imaging of the fetus was performed. Transabdominal imaging performed. COMPARISON: 09/14/2024. FINDINGS: LMP: 02/16/2024. CRISTAL by LMP: 11/22/2024. GA: 34 weeks 4 days. Cervix: Not visualized. Positioning: Vertex. Amniotic Fluid: 5.4 cm SDP. Placenta: Technique: TA. Placenta Position: Anterior. Dopplers: Heart Rate: 135 bpm. BIOMETRY BPD: 8.7 cm, 35 weeks 1 day. 69% HC: 31.4 cm, 35 weeks 1 day. 30% AC: 30.8 cm, 34 weeks 6 days. 62% FL: 6.5 cm, 33 weeks 2 days. 13% FL/AC Ratio: 20.91% HC/AC Ratio: 1.02. EFW: 2436 grams, 5 lb 6 oz. Age by this US: 34 weeks 4 days. CRISTAL by this US: 11/22/2024. Percentile by CRISTAL: 42% IMPRESSION: 1. Sonographic gestational age 34 weeks 4 days and sonographic due date 11/22/2024. 2. Estimated weight 42nd percentile. Abdominal circumference 62nd percentile. Steve Gipson M.D. Diagnostic Radiologist [email or web address] Transcribed: 12:45 pm DW/Dictated by: Steve Gipson MD @ 10/28/2024 12:19:00 PM (Electronically Signed)
== END 2024-10-15 13:57 | disposition home or self-care (01) ==
LOC: US 13:56
PROVIDERS: PCP Family Medicine; Visit Provider Obstetrics & Gynecology
DX: O09.523 Supervision of elderly multigravida, third trimester (principal); O36.5930 Maternal care for other known or suspected poor fetal growth, third trimester, not applicable or unspecified; Z3A.34 34 weeks gestation of pregnancy
CPT/HCPCS: 76816

== ENCOUNTER 2024-10-27 12:44 | Outpatient (CLI) | payer BC, SELFPAY | END 2024-10-27 12:45 | disposition home or self-care (01) | LOC: NFLDREF 11-02 16:54 | PROVIDERS: PCP Family Medicine; Referring Provider Family Medicine; Visit Provider Obstetrics & Gynecology | DX: Z34.93 Encounter for supervision of normal pregnancy, unspecified, third trimester (principal) | CPT/HCPCS: 87081; 87653 ==

== ENCOUNTER 2024-11-05 14:50 | Outpatient (CLI) | payer BC, SELFPAY ==
--- NOTE | 2024-11-05 15:00 | CRLHL7_ITS ---
For Patients: As a result of the Cures Act, medical imaging exams and procedure reports are released immediately into your electronic medical record. You may view this report before your referring provider. If you have questions, please contact your health care provider. OBSTETRICAL ULTRASOUND ???LIMITED, 11/05/2024 INDICATION: Uterine size for dates discrepancy, check NADYA. CLINICAL HISTORY: CRISTAL by LMP: 11/22/2024 Gestational Age: 37 weeks 4 days COMPARISON: 10/15/2024, 09/14/2024, 06/24/2024 TECHNIQUE: Real-time antoine-scale transabdominal imaging of the fetus was performed. FINDINGS: Fetus: Single Cervix: Not visualized positioning: Vertex Amniotic Fluid: NADYA: 14.8 cm 6.0 cm SDP Placenta technique: Transabdominal Placenta position: Anterior heart rate: 126 bpm IMPRESSION: Amniotic fluid NADYA 14.8 cm. Single deepest pocket 6.0 cm. STEVE BROWNING M.D. Diagnostic Radiologist [email or web address] Transcribed: 12:[address]/Dictated by: Steve Browning MD @ 11/06/2024 11:32:00 AM (Electronically Signed)
== END 2024-11-05 14:51 | disposition home or self-care (01) ==
LOC: US 14:50
PROVIDERS: PCP Family Medicine; Visit Provider Obstetrics & Gynecology
DX: O26.843 Uterine size-date discrepancy, third trimester (principal); Z3A.37 37 weeks gestation of pregnancy
CPT/HCPCS: 76815

== ENCOUNTER 2025-01-11 10:57 | Outpatient (CLI) | payer BC, SELFPAY ==
--- NOTE | 2025-01-11 16:20 | P.LACCB_ITS ---
Consult Note - Mom Date of Visit Date of visit: 01/11/25 Reason for consultation: Assistance Needed and Other (strong letdown, baby refluxy, not take bottle well) Visit Code: Visit Patient's Information Phone number: [phone] : 6 Para: 2 Allergies No Known Allergies Allergy (Unknown, Verified 12/07/24 09:33) Mother's Medical History: Medical History (Updated 12/07/24 @ 22:34 by Zhane Zambrano MD) labor ?O60.00 - labor without delivery, unspecified trimester (ICD-10) Vulvar pain ?R10.2 - Pelvic and perineal pain (ICD-10) IUD (intrauterine device) in place ?Z97.5 - Presence of (intrauterine) contraceptive device (ICD-10) Partial molar ?O08.89 - Other complications following an ectopic and molar (ICD- 10) Miscarriage ?O03.9 - Complete or unspecified spontaneous without complication (ICD-10) Migraine with aura ?G43.109 - Migraine with aura, not intractable, without status migrainosus (ICD-10) Foreign body in hand ?S60.559A - Superficial foreign body of unspecified hand, initial encounter (ICD-10) Concussion ?S06.0XAA - Concussion with loss of consciousness status unknown, initial encounter (ICD-10) Bone tumor ?D49.2 - Neoplasm of unspecified behavior of bone, soft tissue, and skin (ICD-10) Anesthesia complication ?T88.59XA - Other complications of anesthesia, initial encounter (ICD-10) Baby's Information Baby's Age at Visit: 7 weeks 5 days Baby's Provider or Clinic: [facility] Jaundice: No Past Experience Past Experience: Yes Current Both Breasts: Yes Suck: strong Latch: shallow Pumping Pumping: Yes Supplementing EBM Supplement: Yes (trying, babe not take bottle well) Breast/Nipple Condition Breast Information: Breasts are symmetrical with rounded lower quadrants, intramammary distance is less than 1.5 inches. No erythema. Nipples are supple, everted prior to feeding. Breast Shape: Round and Firm Engorgement: No Maternal Nipple Condition - Right: Common Nipple Sore Nipples: No (not anymore, were horribly sore for 2 weeks with cracks and bleeding) Baby Assessment Skin: Normal Tongue/frenulum: Restricted mid-range (posterior tongue tie noted but has adequate lift of tongue) Palate: Narrow (slight) Lips: Tight labial frenulum (can flange upper lip but class 3 tie noted) Jaw Alignment: Symmetrical Mucosa: Harvel, moist Onsite Observation Position: Cross cradle Attachment/latch-on achieved: Easily Suck pattern: Suck burst and normal rest Swallow: Gulping Behavior following feed: Alert, fussy (crying, spitting up) Pre-Nursing Left Nipple: Within Normal Limits Pre-Nursing Right Nipple: Within Normal Limits Post-Nursing Left Nipple: Within Normal Limits Post-Nursing Right Nipple: Within Normal Limits Assessments/Interventions Assessments/Interventions: Parents, didi and Jorge, here to discuss bottle refusal. Bottle was introduced around 4 weeks of age and Sreekanth is highly averse to taking a bottle. He will sometimes take 2 oz but it is always a struggle. They have tried multiple bottle nipples, different temps of milk, different people, different holds, dream feed vs very hungry all with minimal success. Mom returns to work later this month and time clock inspector in February. Dad will be home with baby when she returns to work. He also does not take a pacifier. Of note, mom has a strong letdown and baby manages this ok most of the time; ocassionally he will go on and off the breast. If he is fussy, he only wants mom and only wants to breastfeed; mom can tell the difference between nutritive suckling and comfort nursing; he does a lot of comfort nursing. Did not do a prefeed weight as we were focusing on bottle feeding and he was ready to eat when he got here. He has been gaining 10-12 oz weekly from [employer] [facility] (community parent-baby group). However, he refused to take the bottle - essentially bakari the minute he sees the bottle and no amount of distraction enticed him to take the bottle. Parents have tried to just have him play with the nipple to get used to the feeling, and he cries even with this. Discussed the possible tongue tie and part of the issue- however, given how well he transfers milk with BFing, not convinced this is the issue with bottles although it may be a factor. Consider Even mili bottles for a more similar feeding scenaio to BFing. Discussed some reflux symptoms- again, this is likely adding to his discomfort, but I don't think this is his issue; I do think it's adding to him wanting to BF all the time and adding to some stomach upset which may add to refusing the bottle as he doesn't feel good. Follow-Up Recommend baby be seen by provider for:: Primary care for reflux symptom management Speech therapy feeding evaluation for extreme bottle refusal-referral from Primary Care if needed Time Spent Time spent with patient (min): 60 Meds Home Medications and Allergies Home Medications ?Medication ?Instructions ?Recorded ?Confirmed ?Type docosahexaenoic acid 200 mg mg PO 03/21/22 12/07/24 Hi story capsule ( DHA) Allergies Allergy/AdvReac Type Severity Reaction Status Date / Time No Known Allergies Allergy Unknown Verified 12/07/24 09:33
== END 2025-01-11 10:58 | disposition home or self-care (01) ==
LOC: OB LAC 10:58
PROVIDERS: PCP Family Medicine; Visit Provider Obstetrics & Gynecology
DX: Z39.1 Encounter for care and examination of lactating mother (principal)
CPT/HCPCS: G0463

== ENCOUNTER 2025-01-14 11:06 | Outpatient (CLI) | payer BC, SELFPAY ==
[2025-01-17 09:52] LABS: HPV Source Cervical
[2025-01-20 08:07] LABS: Pap Test Digital Imaging Done
== END 2025-01-14 11:07 | disposition home or self-care (01) ==
PROVIDERS: PCP Family Medicine; Visit Provider Obstetrics & Gynecology
DX: Z12.4 Encounter for screening for malignant neoplasm of cervix (principal); Z83.49 Family history of other endocrine, nutritional and metabolic diseases
CPT/HCPCS: 84443; 87624; 87625; 88141; 88142; 88175